=== PATIENT | male | born 1985 | race Caucasian/White ===

== ENCOUNTER 2021-11-15 14:37 | Emergency (ER) | payer OTHER, SELFPAY ==
[2021-11-15 15:09] VITALS: BP 122/78; PULSE 120; RESP 17; TEMP 37.2; O2SAT 95; BMI 32.2
--- NOTE | 2021-11-15 18:30 | ED.GENADULT ---
HPI - General Adult General Chief complaint: General Medical Stated complaint: toruble urinanting/painful Time Seen by Provider: 11/15/21 15:25 Source: patient Mode of arrival: ambulatory Limitations: no limitations History of Present Illness HPI narrative: Patient's history of urethral stricture after injury about 15 years ago had last urethral dilatation was done about 12 years ago since then patient has been having problems urinating unable to see urologist since then is getting worse for last few days feels that not able to empty his bladder completely on arrival patient's postvoid volume was 250 cc feeling uncomfortable no fever no chills no nausea or vomiting no abdominal pain patient having very hard time to even start urinating Related Data Previous Rx's Medication Instructions Recorded levofloxacin 500 mg tablet 500 mg PO DAILY 10 Days #10 tab 11/15/21 Allergies Allergy/AdvReac Type Severity Reaction Status Date / Time No Known Allergies Allergy Unverified 05/12/20 18:32 Review of Systems Review of Systems: Yes all other systems are reviewed and are negative PMFSH Past Medical History Medical History Asthma Urethral stricture Social History Social History Advance Directives: No Advance Directives Information Provided: No Physical Exam ED Vital Signs: Vital Signs - 24 hr 11/15/21 15:09 11/15/21 20:11 Temperature 99 F Pulse Rate 120 H 74 Respiratory Rate 17 15 Blood Pressure 122/78 139/78 Pulse Oximetry 95 98 BMI result Body Mass Index 32.2 Appearance: Alert. Oriented X3. No acute distress. ENT: Pharynx normal. Oral Mucosa moist Neck: Normal inspection. Neck supple. CVS: Normal heart rate and rhythm. Pulses normal. Respiratory: No respiratory distress. Equal air entry bilateral, Abdomen: Soft and nontender. : Meatus of the penis almost closed normal testicle Neuro: Oriented X 3. Procedures Catheter Insertion (Urinary) Date of insertion: 11/15/21 Time of insertion: 19:40 Reason for placing indwelling catheter: Acute urinary retention Bladder scan/ultrasound used before catheterization: Yes Estimated amount of urine (mLs): 250 Antiseptic solution prep: Povidone-Iodine Topical anesthesia used: Yes Catheter type/location: Urethral Size (Welsh): 14 Catheter balloon size (mL): 10 Catheter balloon amount: 10 Results: successfully catheterized-immediate flow Procedure performed: without complications Medical Decision Making MDM Narrative Medical decision making narrative: Patient with urethral stricture urethral dilatation was done using straight cath 12 Welsh then 14 Welsh and 16 Welsh and then 14 Welsh Miller catheter was placed Lab Data Labs: Lab Results 11/15/21 Range/Units 19:33 Urine Color ORANGE A Urine Appearance HAZY Urine pH 7.0 (5.0-8.0) Ur Specific [place] 1.020 (1.005-1.025) Urine Protein TRACE (NEG-TRACE) MG/DL Urine Glucose (UA) NEG (NEG) MG/DL Urine Ketones 5 (NEG) MG/DL Urine Blood NEG (NEG) Urine Nitrite NEG (NEG) Ur Leukocyte Esterase 1+ H (NEG) Urine RBC 0 (0) /HPF Urine WBC 15-29 H (0-4) /HPF Ur Squamous Epith Cells 3+ /LPF Urine Bacteria 2+ /LPF Urine Mucus 1+ /LPF Discharge Plan Discharge Clinical Impression: Acute urinary retention, Anterior urethral stricture, UTI (urinary tract infection) Patient Disposition: Home, Self-Care Instructions: Urinary Tract Infection in Men (ED), Miller Catheter Placement and Care (ED) Additional Instructions: Drink plenty of fluids Miller catheter care as advised Antibiotics as prescribed Follow with urologist Prescriptions: New levofloxacin 500 mg tablet 500 mg PO DAILY 10 Days Qty: 10 0RF Referrals: Mak Hoff MD [Physician] - 1 week Interventions: ED Discharge Assessment Last Done: 11/15/21 20:26 Discharge Date/Time: 11/15/21 20:27
[2021-11-15] MEDS: Lidocaine HCl 2 % Urojet 10 ML JEL.PF.APP TOPICAL ×2 (19:10→20:11)
[2021-11-15 19:39] LABS: Appearance Urine HAZY; Color Urine ORANGE; Glucose Urine UA NEG (NEG); Leukocyte Esterase Urine 1+ (NEG); Nitrite Urine NEG (NEG); UACC Culture Trigger YES; Urine Blood NEG (NEG); Urine Ketones 5 MG/DL (NEG); Urine Protein TRACE MG/DL (NEG-TRACE)
[2021-11-15 19:45] LABS: Bacteria Urine 2+ /LPF; Mucus Urine 1+ /LPF; RBC Urine 0 /HPF (0); Squamous Epithelial Cell Urine 3+ /LPF
[2021-11-15] MEDS: levoFLOXacin 500 MG TABLET PO (20:10)
[2021-11-15 20:11] VITALS: BP 139/78; PULSE 74; RESP 15; O2SAT 98
== END 2021-11-15 20:27 | disposition home or self-care (01) ==
PROVIDERS: Emergency Provider Internal Medicine
DX: N35.914 Unspecified anterior urethral stricture, male (principal); R30.0 Dysuria; R33.9 Retention of urine, unspecified; N39.0 Urinary tract infection, site not specified; Z79.899 Other long term (current) drug therapy
CPT/HCPCS: 51798; 81001; 87086; 99284

== ENCOUNTER → 2021-11-21 10:10 | Outpatient (BNVA) | payer OTHER, SELFPAY | PROVIDERS: Visit Provider Urology | DX: N35.919 Unspecified urethral stricture, male, unspecified site (principal); N32.89 Other specified disorders of bladder | CPT/HCPCS: Q3014 ==

== ENCOUNTER 2021-11-27 11:52 | Day surgery (SDC) | payer OTHER, SELFPAY ==
--- NOTE | 2021-11-24 10:19 | HO.ANESPROP2 ---
HPI - Anesthesia Eval Consult details Narrative: 36yo M for Cystoscopy Direct Visual Internal Urethrotomy Suboxone daily (10mg daily) PMFSH Active Problems Active Problems: All Active Problems (Updated 11/21/21 @ 11:28 by Mak Hoff MD) Bladder spasm (Acute) Urethral stricture (Acute) Past Medical History Medical History (Updated 11/21/21 @ 11:28 by Mak Hoff MD) Asthma Urethral stricture Social History Social History Patient Tobacco Use Status: Current someday Tobacco user Tobacco use type: Cigarette Meds Allergies Allergy/AdvReac Type Severity Reaction Status Date / Time No Known Allergies Allergy Verified 11/21/21 10:12 Home Medications Medication Instructions Recorded Confirmed Last Taken Type buprenorphine 8 mg-naloxone 2 mg 10 mg SUBLINGUAL DAILY 11/21/21 Unknown History sublingual film Exam Exam Date and Time: November 24, 2021 1019 Assessment and Plan Assessment Anesthesia Assessment: Chart Reviewed
[2021-11-27] VITALS (8 sets, daily range): BP systolic 127–150; BP diastolic 79–95; PULSE 77–90; RESP 16–20; TEMP 36.4–37; O2SAT 97–99; BMI 32.1
[2021-11-27] MEDS: Lactated Ringers 1,000 ML 100 ML IVCONT (13:09)
[2021-11-27] MEDS: ondansetron HCL 4 MG/2 ML VIAL IVPUSH (15:19)
--- NOTE | 2021-11-27 15:34 | PC.NURSE ---
PATIENT WAS SLEEPING AND WHEN HE AWOKE HE FELT NAUSEOUS. YELLOW OUTPUT. FELT BETTER AFTERWARDS PER PATIENT. MEDICATED FOR NAUSEA PER MD ANAILSA ORDER. DECREASED NAUSE. HOB 45DEGREES.
--- NOTE | 2021-11-27 16:26 | PC.NURSE ---
report leslee kay pt moved to pacu awaiting surgery aware and patient of careplan
--- NOTE | 2021-11-27 17:42 | MHC.SHP ---
Pre-Procedural Eval Section A Date of Service: 11/27/21 The patient is an INPATIENT: No Changes since office visit: No Cold of Flu in the past 2 weeks, No New Medical Problems, No Changes in Medication and No Patient answered all questions The History & Physical has been completed within 30 days and I have reviewed it.: Yes Section B Chief Complaint: urethral stricture Allergies: Allergies Allergy/AdvReac Type Severity Reaction Status Date / Time No Known Allergies Allergy Verified 11/21/21 10:12 Plan Diagnosis/Plan: Unchanged ( cystoscopy, direct visualization internal urethrotomy) I have reviewed the history and physical and performed a pertinent physical examination on my patient. No changes have occurred unless specified.
--- NOTE | 2021-11-27 17:57 | HO.ANESPROP2 ---
[facility] Active Problems Active Problems: All Active Problems (Updated 11/21/21 @ 11:28 by Mak Hoff MD) Bladder spasm (Acute) Urethral stricture (Acute) Past Medical History Medical History (Updated 11/21/21 @ 11:28 by Mak Hoff MD) Asthma Urethral stricture Social History Social History Patient Tobacco Use Status: Current someday Tobacco user Tobacco use type: Cigarette Use of substances other than those prescribed or required for medical reasons: Yes Substance Use Frequency: Occasionally Are you DNR?: No Advance Directives: No Advance Directives Information Provided: Yes Advance Directives on File: No Meds Allergies Allergy/AdvReac Type Severity Reaction Status Date / Time No Known Allergies Allergy Verified 11/21/21 10:12 Active Medications: Current Medications Albuterol Sulfate (Albuterol Sulfate (0.083%) 2.5 Mg/3 Ml Vial.Neb) 2.5 mg INHALE ONCE PRN PRN Reason: Shortness of Breath/Wheezing Lactated Ringer's (Lr) 1,000 mls @ 100 mls/hr IVCONT .Q10H SINDY Last Admin: 11/27/21 13:09 Dose: 100 mls/hr Documented by: Home Medications Medication Instructions Recorded Confirmed Last Taken Type buprenorphine 8 mg-naloxone 2 mg 10 mg SUBLINGUAL DAILY 11/21/21 Unknown History sublingual film Exam Exam Date and Time: November 27, 2021 1757 Height,Weight and Vital Signs: Height 6 ft 2 in Weight 113.398 kg Last Vital Signs Temp 97.5 F 11/27/21 13:02 Pulse 77 11/27/21 13:02 Resp 16 11/27/21 13:02 BP 127/79 11/27/21 13:02 Pulse Ox 97 11/27/21 13:02 Airway Mallampati Class: II TM Dist: >3cm Neck ROM: Full Heart: RRR Lungs: CTA Assessment and Plan Assessment Anesthesia Assessment: Anesthesia Plan Discussed and Chart Reviewed Final Anesthetic Review NPO: Yes ASA Class: II Final Preanesthetic Review: No Changes in Pt Med Stat, Meds/Allgs Chart Reviewed, Consent Obtained/Reviewed and Anes Risks/Benef Reviewed Patient Risk: Intermediate Procedure Risk: Low Anesthetic Plan Anesthetic Plan: GA Disposition: Standard PACU
--- NOTE | 2021-11-27 18:39 | P.OP_ITS ---
Operative Note Operative Note Date of Service: 11/27/21 Narrative: PreOperative Diagnosis: Distal urethral stricture Post Operative Diagnosis: distal urethral stricture Procedure: catheter removal, cystoscopy, urethral dilatation, catheter placement Surgeon: Dr Mak Hoff Anesthesia: general Indications for procedure: prior ureteric stricture with procedure 18 years ago. Noticed weakness of stream and passed recent history. Presented to emergency room with retention and small bore catheter placed. Here for diagnostic cystoscopy and appropriate management. Procedure: After informed consent was verified the patient was brought to the operating room and placed in a supine position. Anesthesia was administered per protocol. patient was placed in modified dorsal lithotomy position and prepped and draped in sterile fashion. Safety pause time-out performed. Antibiotics being given. Indwelling Miller catheter been removed prior to positioning. Cystoscopy performed. Unable to advance more than 2 cm into urethra. Appeared to have distal urethral narrowing and a question of fossa navicularis scarring. Sensor guidewire placed into the bladder. Urethral dilatation performed to 22 [place]. Cystoscopy performed cystoscope able to be advanced into the bladder. Scarring could be seen on distal portion of urethra for approximately 1-[address] inches[address] Decision made to place Arden tip catheter. Twenty Green[place]ic Arden tip catheter placed over the wire into the bladder. Guidewire removed. 10 cc placed in balloon. Catheter capped and can remain for 5-7 days Tolerated the procedure well was extubated in operating room transferred in stable condition to recovery area. Pathology: None Drains: Miller catheter is above
[2021-11-27] MEDS: HYDROmorphone HCl 0.5 MG/0.5 ML SYRINGE IVPUSH (19:00)
== END 2021-11-27 19:57 | disposition home or self-care (01) ==
PROVIDERS: Visit Provider Urology
PROC: 0TND8ZZ Release Urethra, Via Natural or Artificial Opening Endoscopic (ICD-10-PCS; CPT 52276; principal; 2021-11-27 13:50)
DX: N35.919 Unspecified urethral stricture, male, unspecified site (principal); N32.89 Other specified disorders of bladder; J45.909 Unspecified asthma, uncomplicated; F17.210 Nicotine dependence, cigarettes, uncomplicated; Z79.899 Other long term (current) drug therapy
CPT/HCPCS: 52281; C1769; J0131; J1170; J1956; J2405

== ENCOUNTER → 2021-12-05 09:24 | Outpatient (BNVA) | payer OTHER, SELFPAY | PROVIDERS: PCP Internal Medicine; Visit Provider Urology | DX: Z46.6 Encounter for fitting and adjustment of urinary device (principal); N35.919 Unspecified urethral stricture, male, unspecified site | CPT/HCPCS: 99211 ==

== ENCOUNTER → 2021-12-12 10:27 | Outpatient (BNVA) | payer OTHER, SELFPAY | PROVIDERS: PCP Internal Medicine; Visit Provider Urology | DX: Z13.89 Encounter for screening for other disorder (principal) ==

== ENCOUNTER 2023-10-29 14:59 | Outpatient (AMB) | payer BC, SELFPAY ==
[2023-10-29 15:03] VITALS: PULSE 66; O2SAT 99; BMI 32.1
--- NOTE | 2023-10-29 15:03 | MHC.OFFVIS ---
Intake Vital Signs 10/29/23 15:03 Height 6 ft 2 in Weight 250 lb BMI 32.1 Pulse 66 Pulse Source Pulse Oximeter Pulse Oximetry (%) 99 Oxygen Delivery Method Room Air Intake Visit Reasons: Cough Online Education Manager Required: No Allergies No Known Allergies Allergy (Verified 10/29/23 15:04) HPI HPI Comments History of Present Illness Details The patient is here for pulmonary evaluation. The patient is a 38 year general known history of asthma. Patient states that he developed asthma about 4-5 years ago. The patient has struggled with the chest tightness and wheezing. Had been using his rescue inhaler on a daily basis multiple times a day. Until he started Breo. Breo 200 mcg dose has been very effective for him. He does that daily. He has not had to use his rescue inhaler. As far as his triggers he does have a pet bird. He still smokes some usually recreational marijuana. He is trying to get down however. Prior to that he was involved in other recreational drugs. 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 The patient does have allergies although he has not had proper allergy testing. Clinically he feels well this time. Although, on examination he does have some wheezing and rhonchi. Was able to cough some secretions in his rhonchi did improve which is reassuring. The rhonchi seemed to be more focused on the right side than the left. He denies any significant reflux disease heartburn. Based on his ongoing symptoms will go ahead and optimize his treatment to Trelegy instead this will provide him more bronchodilator effect. In addition to that will have him undergo pulmonary function studies. He did have a chest x-ray in the past at [facility] that we over to review without any acute disease. Depending on his response to the Trelegy will consider doing additional testing. I did notice that his legs were also swollen. Based on that further questions included the fact that he is having daytime drowsiness and does have episodes of snoring and also apneic episodes. His [place] score is elevated 10/24. Therefore, the patient definitely needs to have a sleep study at this time. Will request a home sleep study for him. [facility] Medical History (Updated 10/30/23 @ 08:49 by Miguel Sierra MD) Chronic allergic rhinitis ELODIA (obstructive sleep apnea) Urethral stricture Asthma Social History Patient Tobacco Use Status: Current someday Tobacco user Tobacco use type: Cigarette Review of Systems Const Reports daytime sleepiness, Reports snoring and Reports stops breathing during sleep ENT Reports post nasal drip Card Denies chest pain Resp Reports cough, Reports snoring and Reports wheezing GI Reports no additional complaints Musc Reports no additional complaints Skin/Breast Denies rash Neuro Reports no additional complaints Aller/Immun Reports wheezing Physical Exam Vital Signs: Last Vital Signs Pulse 66 10/29/23 15:03 Pulse Ox 99 10/29/23 15:03 Oxygen Delivery Method Room Air 10/29/23 15:03 BMI result Body Mass Index 32.1 Const General: comfortable HEENT Head: Yes normocephalic Neck Neck: Yes supple Chest Chest palpation & inspection: normal inspection of the chest Resp Effort & Inspection: normal respiratory effort and prolonged expiratory phase Auscultation: rhonchi and wheezes Cardio Heart sounds: S1 normal heart sound present and S2 normal heart sound present GI Palpation (GI): Soft to palpation Skin General skin exam: no rashes or lesions noted Extrem General: Yes no clubbing, cyanosis or edema Assessment & Plan Assessment & Plan (1) Asthma: Code(s): J45.909 - Unspecified asthma, uncomplicated Qualifiers: Asthma severity: moderate Asthma persistence: persistent Asthma complication type: uncomplicated Qualified Code(s): J45.40 - Moderate persistent asthma, uncomplicated (2) ELODIA (obstructive sleep apnea): Code(s): G47.33 - Obstructive sleep apnea (adult) (pediatric) (3) Chronic allergic rhinitis: Code(s): J30.9 - Allergic rhinitis, unspecified Plan Stop Breo Start Trelegy 200 RADHA as neeeded Home PSG PFTs Consider bloodwork / allergy testing F/U 3 months Orders: Orders PFT pulmonary function test 10/29/23 G47.33 - Obstructive sleep apnea (adult) (pediatric), J45.909 - Unspecified asthma, uncomplicated RT home sleep study 10/29/23 Medications: New bfwdxvbghwo-gbblaeqmr-ubbwiurc 200-62.5-25 mcg (Trelegy Ellipta) 1 inh inhalation DAILY 30 days 60 ea 12RF Coding Level of Care Code New Pt Level 4 (12863) Diagnoses Moderate persistent asthma without complication J45.40 Asthma severity: moderate Asthma persistence: persistent Asthma complication type: uncomplicated ELODIA (obstructive sleep apnea) G47.33 Chronic allergic rhinitis J30.9 Time Spent (min) 37
== END 2023-10-29 15:24 | disposition home or self-care (01) ==
PROVIDERS: PCP Internal Medicine; Visit Provider Hospitalist
DX: J45.40 Moderate persistent asthma, uncomplicated (principal); G47.33 Obstructive sleep apnea (adult) (pediatric); J30.9 Allergic rhinitis, unspecified
CPT/HCPCS: 99204

== ENCOUNTER → 2023-10-29 14:59 | Outpatient (BNVA) | payer BC, SELFPAY | PROVIDERS: PCP Internal Medicine; Visit Provider Hospitalist ==

== ENCOUNTER → 2023-12-10 09:01 | Outpatient (REF) | payer BC, SELFPAY | LOC: HO.SL 09:01 | PROVIDERS: PCP Internal Medicine; Visit Provider Hospitalist | DX: G47.33 Obstructive sleep apnea (adult) (pediatric) (principal) | CPT/HCPCS: 95806 ==

== ENCOUNTER → 2023-12-10 09:13 | Outpatient (BNV) | payer BC, SELFPAY | PROVIDERS: PCP Internal Medicine; Visit Provider Internal Medicine | DX: R06.83 Snoring (principal) | CPT/HCPCS: 95806 ==

== ENCOUNTER 2025-03-05 15:40 | Outpatient (AMB) | payer BC, SELFPAY ==
--- NOTE | 2025-03-05 15:41 | A.OFFVIS_ITS ---
Vital Signs 03/05/25 15:42 Height 6 ft 2 in Weight 234 lb 12.677 oz BMI 30.1 BP 120/60 Blood Pressure Location Lt brachial Position Sitting Pulse 77 Pulse Source Pulse Oximeter Pulse Oximetry (%) 96 Oxygen Delivery Method Room Air Intake Visit Reasons: cough Database Security Administrator Required: No Accompanied by: Self / Same As Patient Allergies No Known Allergies Allergy (Verified 03/05/25 15:45) HPI Comments Details: he patient is a 39 year general known history of asthma. Patient states that he developed asthma about 4-5 years ago. The patient has struggled with the chest tightness and wheezing. Had been using his rescue inhaler on a daily basis multiple times a day. Until he started Breo. Breo 200 mcg dose has been very effective for him. He does that daily. He has not had to use his rescue inhaler. As far as his triggers he does have a pet bird. He still smokes some usually recreational marijuana. He is trying to get down however. Prior to that he was involved in other recreational drugs. 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 The patient does have allergies although he has not had proper allergy testing. Clinically he feels well this time. Although, on examination he does have some wheezing and rhonchi. Was able to cough some secretions in his rhonchi did improve which is reassuring. The rhonchi seemed to be more focused on the right side than the left. He denies any significant reflux disease heartburn. Based on his ongoing symptoms will go ahead and optimize his treatment to Trelegy instead this will provide him more bronchodilator effect. In addition to that will have him undergo pulmonary function studies. He did have a chest x-ray in the past at [facility] that we over to review without any acute disease. Depending on his response to the Trelegy will consider doing additional testing. I did notice that his legs were also swollen. Based on that further questions included the fact that he is having daytime drowsiness and does have episodes of snoring and also apneic episodes. His [place] score is elevated 10/24. Therefore, the patient definitely needs to have a sleep study at this time. Will request a home sleep study for him. 03/05/2025 the patient is here for pulmonary follow-up visit. Overall he is doing a lot better from an asthma standpoint. He does have a cough intermittently and also has intermittent wheezing mild in severity. He did get the Trelegy in the Trelegy this has been very affecting beneficial but he does not have to use it as often. He typically just uses his rescue inhaler. He will definitely benefit from air supra. Will go ahead and switch him from Trelegy to air supra this time and he can use it as needed twice a day. He knows to rinse and gargle after using the inhaler to avoid thrush or any irritation. The patient did have a sleep study back last year 2023 which we personally reviewed. The patient did not have any significant sleep apnea. Although he did better sleeping in his left side down. Therefore, he is going to practice positional therapy at this time. No imaging studies to review will follow-up in a year's time if he has any issues prior to this he will call for an earlier assessment. [facility] Medical History (Updated 10/30/23 @ 08:49 by Miguel Sierra MD) Chronic allergic rhinitis ELODIA (obstructive sleep apnea) Urethral stricture Asthma Social History Patient Tobacco Use Status: Current someday Tobacco user Tobacco use type: Cigarette Review of Systems Const Reports daytime sleepiness, Denies snoring and Reports stops breathing during sleep ENT Reports post nasal drip Card Denies chest pain Resp Reports cough, Denies snoring and Denies wheezing GI Reports no additional complaints Musc Reports no additional complaints Skin/Breast Denies rash Neuro Reports no additional complaints Aller/Immun Denies wheezing Physical Exam Vital Signs: Last Vital Signs Pulse 77 03/05/25 15:42 BP 120/60 03/05/25 15:42 Pulse Ox 96 03/05/25 15:42 Oxygen Delivery Method Room Air 03/05/25 15:42 BMI result Body Mass Index 30.1 Const General: comfortable HEENT Head: Yes normocephalic Neck Neck: Yes supple Chest Chest palpation & inspection: normal inspection of the chest Resp Effort & Inspection: normal respiratory effort Auscultation: clear to auscultation bilaterally, no rhonchi and no wheezes Cardio Heart sounds: S1 normal heart sound present and S2 normal heart sound present GI Palpation (GI): Soft to palpation Skin General skin exam: no rashes or lesions noted Extrem General: Yes no clubbing, cyanosis or edema Assessment & Plan Assessment & Plan (1) Asthma: Code(s): J45.909 - Unspecified asthma, uncomplicated Category: Medical Qualifiers: Asthma complication type: uncomplicated Asthma persistence: persistent Asthma severity: moderate Qualified Code(s): J45.40 - Moderate persistent asthma, uncomplicated (2) ELODIA (obstructive sleep apnea): Code(s): G47.33 - Obstructive sleep apnea (adult) (pediatric) Category: Medical (3) Chronic allergic rhinitis: Code(s): J30.9 - Allergic rhinitis, unspecified Category: Medical Plan stop Trelegy 200 RADHA as neeeded start Airsupra as needed. But, may want to go back on Trelegy if symptoms worsen, Consider bloodwork / allergy testing F/U 12 months Medications: New albuterol-budesonide 90-80 mcg/actuation (Airsupra) 2 inhalations inhalation BID PRN 10.7 grams 11RF shortness of breath Discontinued yfwuhlgoecs-nqtteysoj-mtzlosyc 200-62.5-25 mcg (Trelegy Ellipta) Discontinued Reason: Doctor's Order 1 inh inhalation DAILY 30 days 60 ea 12RF Coding Level of Care Code Est Pt Level 4 (18139) Diagnoses Moderate persistent asthma without complication J45.40 Asthma complication type: uncomplicated Asthma persistence: persistent Asthma severity: moderate ELODIA (obstructive sleep apnea) G47.33 Chronic allergic rhinitis J30.9 Time Spent (min) 16
[2025-03-05 15:42] VITALS: BP 120/60; PULSE 77; O2SAT 96; BMI 30.1
== END 2025-03-05 16:11 | disposition home or self-care (01) ==
LOC: HO.HPS 15:40
PROVIDERS: PCP Internal Medicine; Visit Provider Hospitalist
DX: J45.40 Moderate persistent asthma, uncomplicated (principal); G47.33 Obstructive sleep apnea (adult) (pediatric); J30.9 Allergic rhinitis, unspecified
CPT/HCPCS: 99214

== ENCOUNTER 2025-03-09 15:27 | Outpatient (AMB) | payer BC, SELFPAY ==
--- NOTE | 2025-03-09 15:33 | A.OFFVIS_ITS ---
Intake Visit Reasons: urethral stricture/lichen sclerosis of the penis Intake Note: New Patient is present for urethral stricture Urology Rx: none Blood Thinners:none [employer] Psychiatrist Required: No Accompanied by: Self / Same As Patient Allergies No Known Allergies Allergy (Verified 03/09/25 15:34) HPI Comments Details: Michael is a pleasant male. He is seen for the following urologic condition - urethral stricture Last seen October 2021 Previously recommended daily use of dilator and referral to [facility] Prior referral to Dr. Faustin at [facility] for graft - distal urethral reconstruction Was informed that reconstruction would be extensive Given glucocorticoids cream - has caused thinning on glandular tissue Recommend trial topical testosterone Prescription provided Urethral stricture Prior injury aged 20 Follow catheter placed emergency room 11/14 DVIU performed for distal urethral stricture Had catheter for 7 days [facility] Medical History (Updated 03/09/25 @ 15:59 by Mak Hoff MD) Chronic allergic rhinitis ELODIA (obstructive sleep apnea) Urethral stricture Asthma Social History Patient Tobacco Use Status: Current someday Tobacco user Tobacco use type: Cigarette Review of Systems Const Denies chills and Denies fever(s) Card Reports no additional complaints and Denies syncope Resp Denies cough GI Denies abdominal pain and Denies heartburn Reports as per HPI and Denies change in libido Neuro Denies syncope Psych Denies change in libido Endo Denies change in libido Physical Exam Const General: cooperative, healthy appearing, comfortable and no acute distress Orientation/consciousness: patient oriented x3 HEENT Face and sinus: Yes normal facial exam Mouth: moist mucous membranes Neck Neck: Yes normal visual inspection, Yes full ROM and Yes trachea midline Chest Chest palpation & inspection: normal inspection of the chest Resp Effort & Inspection: normal respiratory effort, able to speak in complete sentences and no respiratory distress GI Inspection: Yes normal to inspection Back/Spine/Pelvis Cervical Spine: normal cervical lordosis Thoracic/Lumbar Spine: thoracic and lumbar spine normal to inspection Skin General skin exam: no rashes or lesions noted Neuro General: patient oriented x3, gait normal, tone normal and moves all extremities Extrem General: Yes normal to inspection and Yes capillary refill normal Results AMB Urinalysis, Automated UA Leukoctes 0 Sterling/uL Last Edit by Keily Velazco MA on 03/09/25 16:12 UA Nitrite Negative Last Edit by Keily Velazco, NITZA on 03/09/25 16:12 UA Urobilinogen 3.5 mg/dL Last Edit by Keily Velazco, [place] on 03/09/25 16:12 UA Protein 0.3 mg/dL Last Edit by Keily Velazco, [place] on 03/09/25 16:12 UA pH 5.5 Last Edit by Keily Velazco, [place] on 03/09/25 16:12 UA Blood 0 Klaus/uL Last Edit by Keily Velazco, [place] on 03/09/25 16:12 UA Specific Butler 1.030 Last Edit by Keily Velazco, [place] on 03/09/25 16:12 UA Ketone Negative Last Edit by Keily Velazco, [place] on 03/09/25 16:12 UA Bilirubin 0 mg/dL Last Edit by Keily Velazco, [place] on 03/09/25 16:12 UA Glucose 0 mg/dL Last Edit by Keily Velazco, [place] on 03/09/25 16:12 Assessment & Plan Assessment & Plan (1) 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 While every effort has been made to ensure accuracy install and repair technician errors may have been included. Imaging studies, laboratory and physical exam results were discussed and reviewed in detail. No major barriers to patient understanding were identified. An opportunity to ask questions regarding the treatment plan was provided. All questions were answered. The patient expressed understanding and agreement with the above treatment plan. The patient is aware they should contact our office by phone for worsening of their current condition or the appearance of new urologic symptoms. Compliance is encouraged with any medications and followup testing that is ordered. It is a privilege to participate in the urologic care of your patient. If you have any questions or concerns regarding treatment for the above conditions, or other urologic issues, please do not hesitate to contact me. The office telephone contact is [phone]. 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
--- OUTSIDE RECORDS SUMMARY | 2025-03-09 16:30 | XMS_ITS | Clinical Summary ---
Author Organization [facility] Address [address] [place] [address] Care Team Providers Care Farm Mechanic Apprentice Name Role Phone Unavailable Primary Care Provider Unavailabl e Allergies No known active allergies Medications * This document contains information received from the source organization and may not represent a complete record from that organization. No known medications Active Problems Problem Noted Date Diagnosed Date Rotator cuff (capsule) sprain 12/23/2009 Social History Tobacco Use Types Packs/Day Years Used Date Smoking Tobacco: Never Assessed Sex and Gender Information Value Date Recorded Sex Assigned at Not on file Legal Sex Male 7:52 PM EDT Gender Identity Not on file Sexual Orientation Not on file Last Filed Vital Signs Vital Sign Reading Time Taken Comments Blood Pressure 114/74 12/29/2009 10:12 AM EDT Pulse 70 12/29/2009 10:12 AM EDT Temperature - - Respiratory Rate 20 10/06/2007 12:54 PM EST Oxygen Saturation 98% 10/06/2007 12:54 PM EST Inhaled Oxygen Concentration - - Weight 106 kg (234 lb) 10/06/2007 12:54 PM EST Height 188 cm (6' 2 ) 10/06/2007 12:54 PM EST Body Mass Index 30.04 10/06/2007 12:54 PM EST Plan of Treatment Health Maintenance Due Date Last Done Comments Hepatitis C Screening 1983 DTaP/Tdap/Td (1 - Tdap) 2001 Hep B (1 of 3 - 19+ 3-dose series) 2002 COVID-19 Vaccine ( - 2023-2 5 season) 2024 Influenza (#1) 2025 Zoster (Shingrix) (1 of 2) 2033 HPV Vaccine Aged Out No longer eligi ble based on patient's age to complete this topic Hep A Aged Out No longer eligi ble based on patient's age to complete this topic Hib Aged Out No longer eligi ble based on patient's age to complete this topic Meningococcal ACWY Aged Out No longer eligible based on patient's age to complete this topic Pneumococcal Aged Out No longer eligi ble based on patient's age to complete this topic Insurance WORKERS COMPENSATION * Guarantor: [employer] Account Type Relation to Patient Date of Phone Billing Address [facility] ATTN: A/P DEPT 2ND FLR [address] [place] [address]
== END 2025-03-09 16:04 | disposition home or self-care (01) ==
LOC: HO.HUSH 15:27
PROVIDERS: PCP Internal Medicine; Visit Provider Urology
DX: N48.0 Leukoplakia of penis (principal); Z13.9 Encounter for screening, unspecified
CPT/HCPCS: 99204

== ENCOUNTER → 2025-03-09 15:27 | Outpatient (BNVA) | payer BC, SELFPAY | PROVIDERS: PCP Internal Medicine; Visit Provider Urology | DX: N48.0 Leukoplakia of penis (principal) | CPT/HCPCS: 81003 ==

== ENCOUNTER 2025-03-17 15:10 | Outpatient (AMB) | payer BC, SELFPAY ==
--- NOTE | 2025-03-17 15:15 | A.OFFVIS_ITS ---
Vital Signs 03/17/25 15:21 Height 6 ft 2 in Weight 235 lb BMI 30.2 BP 135/77 Blood Pressure Location Rt brachial Position Sitting Pulse 110 H Intake Visit Reasons: soft tissue lesion (general surgery) Intake Note: Patient referred by pcp Dr. Araya for evaluation and treatment of lipoma on Lt abdomen. Present for 4yrs. Patient c/o: enlarging. Denies pain. Corrosion Control Specialist Required: No Accompanied by: Self / Same As Patient Allergies No Known Allergies Allergy (Verified 03/09/25 15:34) Medication List - Last Reconciled 03/17/25 by Johnnie Landry MD albuterol sulfate 90 mcg/actuation inhalation albuterol-budesonide 90-80 mcg/actuation (Airsupra) 2 inhalations inhalation BID PRN dextroamphetamine-amphetamine 20 mg (Adderall) 20 mg PO DAILY lamotrigine (Lamictal) 100 mg PO DAILY mometasone 0.1% topical testosterone 50 mg transdermal DAILY 60 days HPI HPI soft tissue lesion (general surgery): Details: 39-year-old male referred for a lump on the abdominal wall on the left side. He says he has had this probably 5 years. However, this has been increasing in size. He says that this has been getting more uncomfortable and ?annoying?. Therefore, he wants this removed. [facility] Medical History (Updated 03/17/25 @ 15:27 by Johnnie Landry MD) Lipoma of abdominal wall Torn meniscus ACL tear Chronic allergic rhinitis ELODIA (obstructive sleep apnea) Urethral stricture Asthma Social History Patient Tobacco Use Status: Current someday Tobacco user Tobacco use type: Cigarette Review of Systems Const Denies chills and Denies fever(s) Card Denies chest pain, Denies dyspnea and Denies dyspnea on exertion Resp Denies cough, Denies dyspnea and Denies dyspnea on exertion GI Denies hematochezia and Denies change in bowel habits Denies hematuria and Denies difficulty urinating Musc Denies back pain and Denies limited range of motion Neuro Denies focal weakness and Denies convulsions Psych Denies depression and Denies mood swings Physical Exam Vital Signs: Last Vital Signs Pulse 110 H 03/17/25 15:21 BP 135/77 03/17/25 15:21 BMI result Body Mass Index 30.2 Const General: comfortable and no acute distress Orientation/consciousness: patient oriented x3 Neck Neck: Yes no lymphadenopathy Resp Auscultation: clear to auscultation bilaterally Cardio Rhythm: regular rhythm GI Other: On the left lower quadrant towards the hip area is note of a soft lipomatous mass, well-defined, mobile, about 3.5 cm Palpation (GI): Soft to palpation, nontender and no guarding Neuro General: patient oriented x3 Assessment & Plan Assessment & Plan (1) Lipoma of abdominal wall: Code(s): D17.1 - Benign lipomatous neoplasm of skin and subcutaneous tissue of trunk Category: Medical Plan: He has what appears to be a lipomatous mass on the abdominal wall. He wants to proceed with excision. I explained the technique of excision under local anesthesia. I reviewed the risks including but not limited to bleeding, infections, as well as the benefits and alternatives. I reviewed with him what to expect postoperatively. He says he understands and wants to proceed. This has been done here in the office on his next visit. Coding Level of Care Code New Pt Level 3 (71246) Diagnoses Lipoma of abdominal wall D17.1
[2025-03-17 15:21] VITALS: BP 135/77; PULSE 110; BMI 30.2
--- OUTSIDE RECORDS SUMMARY | 2025-03-17 15:39 | XMS_ITS | Clinical Summary ---
Author Organization [facility] Address [address] [place] [address] Care Team Providers Care Municipal Services Manager Name Role Phone Unavailable Primary Care Provider [...] this topic Insurance WORKERS COMPENSATION * Guarantor: [employer] Account Type Relation to Patient Date of Phone Billing Address [facility] ATTN: A/P DEPT 2ND FLR [address] [place] [address]
== END 2025-03-17 15:30 | disposition home or self-care (01) ==
LOC: HO.HGS 15:11
PROVIDERS: PCP Internal Medicine; Visit Provider Surgery
DX: D17.1 Benign lipomatous neoplasm of skin and subcutaneous tissue of trunk (principal)
CPT/HCPCS: 99203

== ENCOUNTER 2025-04-22 10:45 | Outpatient (REF) | payer BC, SELFPAY | END 2025-04-22 10:46 | disposition home or self-care (01) | LOC: HO.LNP 10:45 | PROVIDERS: PCP Internal Medicine; Visit Provider Surgery | DX: D17.1 Benign lipomatous neoplasm of skin and subcutaneous tissue of trunk (principal) | CPT/HCPCS: 11406; 88304 ==

== ENCOUNTER 2025-04-22 10:45 | Outpatient (AMB) | payer BC, SELFPAY ==
--- NOTE | 2025-04-22 10:55 | MHC.OFFVIS ---
Vital Signs 04/22/25 11:01 Height 6 ft 2 in Weight 236 lb BMI 30.3 BP 126/72 Blood Pressure Location Rt brachial Position Sitting Pulse 72 Intake Visit Reasons: excision soft tissue lesion (general surgery) Intake Note: Patient here for excision of lipoma on abdomen. Radiologist Diagnostic Required: No Accompanied by: Self / Same As Patient Allergies No Known Allergies Allergy (Verified 04/22/25 11:01) HPI HPI excision soft tissue lesion (general surgery): Details: He is here for excision of a lipoma from the left hip area towards the abdominal wall. [facility] Medical History (Updated 03/17/25 @ 15:27 by Johnnie Landry MD) Lipoma of abdominal wall Torn meniscus ACL tear Chronic allergic rhinitis ELODIA (obstructive sleep apnea) Urethral stricture Asthma Social History Patient Tobacco Use Status: Current someday Tobacco user Tobacco use type: Cigarette Physical Exam Vital Signs: Last Vital Signs Pulse 72 04/22/25 11:01 BP 126/72 04/22/25 11:01 BMI result Body Mass Index 30.3 Office Procedures Excision Details: He was in right lateral decubitus position. The area of the lipoma on the left hip anteriorly towards the left lower quadrant was prepped and draped. Lidocaine 1% was used for local anesthesia. I made an incision in the skin overlying the lipoma with a blade 15. This carried down through the full-thickness of the skin and part of the subcutaneous layer until was able to visualize the lipoma. I sharply dissected the lipoma off the rest of the subcutaneous layer using Metzenbaum scissors. I continued to dissect posteriorly until was able to completely delivered this. This was a large lipoma, measuring 7 by 4 cm. I closed the incision with full-thickness nylon 3-0 simple interrupted sutures. Dressings were applied. The procedure was completed. He tolerated the procedure well. There were no immediate complications. 16506-juosa/arms/legs >4cm Procedure code (CPT) selection complete Assessment & Plan Assessment & Plan (1) Lipoma of abdominal wall: Code(s): D17.1 - Benign lipomatous neoplasm of skin and subcutaneous tissue of trunk Category: Medical Plan: Excision was done here in the office under local anesthesia. He tolerated the procedure well. He was given wound care instructions. He we will be seen in the office for a postop visit and removal of sutures. Coding Level of Care Code Procedure Only Diagnoses Lipoma of abdominal wall D17.1 CPT Codes Trunk/Arms/Legs - CPT: 98323-sjeoq/arms/legs >4cm ([id number])
[2025-04-22 11:01] VITALS: BP 126/72; PULSE 72; BMI 30.3
--- OUTSIDE RECORDS SUMMARY | 2025-04-22 12:11 | XMS_ITS | Clinical Summary ---
Author Organization [facility] Address [address] [place] [address] Care Team Providers Care Staff Research Associate Name Role Phone Unavailable Primary Care Provider [...] (Shingrix) (1 of 2) 2033 HPV Vaccine (No Doses Required) Completed Hep A Aged Out No longer eligi [...] this topic Insurance WORKERS COMPENSATION * Guarantor: [employer] Account Type Relation to Patient Date of Phone Billing Address [facility] ATTN: A/P DEPT [address] [place] [address] [address] [place] [address]
== END 2025-04-22 11:25 | disposition home or self-care (01) ==
LOC: HO.HGS 10:45
PROVIDERS: PCP Internal Medicine; Visit Provider Surgery
DX: D17.1 Benign lipomatous neoplasm of skin and subcutaneous tissue of trunk (principal)
CPT/HCPCS: 11406

== ENCOUNTER 2025-05-06 14:55 | Outpatient (AMB) | payer BC, SELFPAY ==
--- NOTE | 2025-05-06 14:57 | A.OFFVIS_ITS ---
Vital Signs 05/06/25 15:03 Height 6 ft 2 in Weight 240 lb BMI 30.8 BP 132/62 Blood Pressure Location Rt brachial Position Sitting Pulse 68 Intake Visit Reasons: s/p excision soft tissue lesion Intake Note: Patient here s/p excision on Left lower abdomen. Patient c/o: no concerns. Reports incision healing well. WLE: 04-22-2025 Premium Representative Required: No Accompanied by: Self / Same As Patient Allergies No Known Allergies Allergy (Verified 05/06/25 15:02) HPI HPI s/p excision soft tissue lesion: Details: He underwent excision of a lipoma from his left flank on 04/22/2025. He tolerated the procedure well. He is here for removal sutures. He denies significant complaints. [facility] Medical History Lipoma of abdominal wall Torn meniscus ACL tear Chronic allergic rhinitis ELODIA (obstructive sleep apnea) Urethral stricture Asthma Social History Patient Tobacco Use Status: Current someday Tobacco user Tobacco use type: Cigarette Review of Systems Const Denies chills and Denies fever(s) Physical Exam Vital Signs: Last Vital Signs Pulse 68 05/06/25 15:03 BP 132/62 05/06/25 15:03 BMI result Body Mass Index 30.8 Const General: comfortable and no acute distress GI Other: Excision site on the left flank in the hip is well healed, not infected, sutures in place Assessment & Plan Assessment & Plan (1) Lipoma of abdominal wall: Code(s): D17.1 - Benign lipomatous neoplasm of skin and subcutaneous tissue of trunk Category: Medical Plan: Status post excision. I removed his sutures. The incision is healing well. I applied Steri-Strips. His path report shows a lipoma. He can follow up on a p.r.n. basis. Coding Level of Care Code Global (86461) Diagnoses Lipoma of abdominal wall D17.1
[2025-05-06 15:03] VITALS: BP 132/62; PULSE 68; BMI 30.8
--- OUTSIDE RECORDS SUMMARY | 2025-05-06 18:23 | XMS_ITS | Clinical Summary ---
Author Organization [facility] Address [address] [place] [address] Care Team Providers Care Drum Reel Cutter Name Role Phone Unavailable Primary Care Provider [...] COVID-19 Vaccine ( - 2023-2 5 season) 2025 Influenza (#1) 2025 Zoster (Shingrix) (1 of [...] this topic Insurance WORKERS COMPENSATION * Guarantor: [employer] Account Type Relation to Patient Date of Phone Billing Address [facility] ATTN: A/P DEPT [address] [place] [address] [address] [place] [address]
== END 2025-05-06 15:06 | disposition home or self-care (01) ==
LOC: HO.HGS 14:55
PROVIDERS: PCP Internal Medicine; Visit Provider Surgery
DX: D17.1 Benign lipomatous neoplasm of skin and subcutaneous tissue of trunk (principal)
CPT/HCPCS: 99024

== ENCOUNTER 2025-07-01 12:41 | Outpatient (AMB) | payer BC, SELFPAY ==
--- NOTE | 2025-07-01 12:43 | A.OFFVIS_ITS ---
Intake Visit Reasons: Penile biopsy Intake Note: New Patient is present for Penile Bx Urology Rx: Topical Testosterone Blood Thinners:none Cigarette Paper Tester Required: No Accompanied by: Self / Same As Patient Allergies No Known Allergies Allergy (Verified 07/01/25 12:44) HPI Comments Details: Michael is a pleasant male. He is seen for the following urologic condition - urethral stricture - lichen sclerosus and atrophicus of penis gland Has been receiving high potency steroids through dermatology Requesting penile biopsy for confirmation Penile biopsy performed today. Punch biopsy through full-thickness of glans surface. Interrupted suture for control. Lidocaine with epinephrine for anesthesia. Two week follow-up Previously recommended daily use of dilator and referral to [facility] Prior referral to Dr. Faustin at [facility] for graft - distal urethral reconstruction Was informed that reconstruction would be extensive Given glucocorticoids cream - has caused thinning on glandular tissue Urethral stricture Prior injury aged 20 Follow catheter placed emergency room 11/14 DVIU performed for distal urethral stricture Had catheter for 7 days COUNTS INCLUDE 234 BEDS AT THE [facility] Medical History Lipoma of abdominal wall Torn meniscus ACL tear Chronic allergic rhinitis ELODIA (obstructive sleep apnea) Urethral stricture Asthma Social History Patient Tobacco Use Status: Current someday Tobacco user Tobacco use type: Cigarette Review of Systems Const Denies chills and Denies fever(s) Card Reports no additional complaints and Denies syncope Resp Denies cough GI Denies abdominal pain and Denies heartburn Reports as per HPI and Denies change in libido Neuro Denies syncope Psych Denies change in libido Endo Denies change in libido Physical Exam Const General: cooperative, healthy appearing, comfortable and no acute distress Orientation/consciousness: patient oriented x3 HEENT Face and sinus: Yes normal facial exam Mouth: moist mucous membranes Neck Neck: Yes normal visual inspection, Yes full ROM and Yes trachea midline Chest Chest palpation & inspection: normal inspection of the chest Resp Effort & Inspection: normal respiratory effort, able to speak in complete sentences and no respiratory distress GI Inspection: Yes normal to inspection Back/Spine/Pelvis Cervical Spine: normal cervical lordosis Thoracic/Lumbar Spine: thoracic and lumbar spine normal to inspection Skin General skin exam: no rashes or lesions noted Neuro General: patient oriented x3, gait normal, tone normal and moves all extremities Extrem General: Yes normal to inspection and Yes capillary refill normal Office Procedures Excision Details: 10ml Lidocaine 2% injected by Dr. 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 While every effort has been made to ensure accuracy trawl net maker errors may have been included. Imaging studies, laboratory and physical exam results were discussed and reviewed in detail. No major barriers to patient understanding were identified. An opportunity to ask questions regarding the treatment plan was provided. All questions were answered. The patient expressed understanding and agreement with the above treatment plan. The patient is aware they should contact our office by phone for worsening of their current condition or the appearance of new urologic symptoms. Compliance is encouraged with any medications and followup testing that is ordered. It is a privilege to participate in the urologic care of your patient. If you have any questions or concerns regarding treatment for the above conditions, or other urologic issues, please do not hesitate to contact me. The office telephone contact is [phone]. 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
--- OUTSIDE RECORDS SUMMARY | 2025-07-01 15:31 | XMS_ITS | Clinical Summary ---
Author Organization [facility] Address [address] [place] [address] Phone Care Team Providers Care Staff Psychologist Name Role Phone Rashad Benitez MD Primary Care Provider [phone] Encounters Date Type Department Care Team Description 06/14/2025 8:36 AM EDT - 06/14/2025 11:59 PM EDT Hospital Encounter [facility] [place] [address] [place] [address] Mariluz Catalan CNP Discharge Disposition: Home or Self Care 06/14/2025 Transcribe Orders [facility] [place] [address] [place] [address] Mariluz Catalan CNP Elevated LFTs (Primary Dx) from Last 3 Months Social History Tobacco Use Types Packs/Day Years Used Date Smoking Tobacco: Never Assessed Education Answer Date Recorded Are you interested in more education? Not on guy e 10/03/2023 Are you concerned about learning? Not on file 10/03/2023 No 10/03/2023 No 10/03/2023 Digital Access Answer Date Recorded No 10/03/2023 No 10/03/2023 Reliable internet access at home? Not on file 10/03/2023 Device with a working camera? Not on file Sex and Gender Information Value Date Recorded Sex Assigned at Not on file Legal Sex Male 3:58 PM EST Gender Identity Not on file Sexual Orientation Not on file Plan of Treatment Upcoming Encounters Date Type Department Care Team (Late st Contact Info) Description 09/29/2025 3:30 PM EST Office Visit [facility] [address] [place] [address] Unknown, Unknown, [place] [address] [email or web address] Health Maintenance Due Date Last Done Comments Adult Td,Tdap Booster 1983 LIPID PANEL 1983 DEPRESSION SCREENING 1995 SMOKING Hx and SMOKELESS TOB ACCO SCREENING 1996 HEPATITIS C SCREENING 2001 HIV ONE-TIME SCREENING (18-6 5 YEARS) 2001 INFLUENZA VACCINE (#1) 2025 COVID-19 VACCINE (2024-2 6 season) 2025 HEPATITIS A VACCINES Aged Out No long er eligible based on patient's age to complete this topic HIB VACCINES Aged Out No longer eligi ble based on patient's age to complete this topic MENINGOCOCCAL VACCINES (ACWY) Aged Out No longer eligible based on patient's age to complete this topic MENINGOCOCCAL VACCINES (B) Aged Out N o longer eligible based on patient's age to complete this topic PNEUMOCOCCAL VACCINES (0-49 years) Aged Out No longer eligible based on patient's age to complete this topic Medical Devices Not on file Procedures Procedure Name Priority Date/Time Associated Diagnosis Comments LFTS (HEPATIC PANEL) Routine 06/14/2025 9:05 AM EDT Elevated LFTs GGT (GAMMA GLUTAMYL TRANSFERASE) Routine 06/14/2025 9:05 AM EDT Elevated LFTs from Last 3 Months Results * (ABNORMAL) LFTs (hepatic panel) (06/14/2025 9:05 AM EDT) ALKALINE PHOSPHATASE 128(H) 39 - 117 U/L [facility] TOTAL BILIRUBIN 0.9 0.0 - 1.2 mg/dL [facility] DIRECT BILIRUBIN 0.1 0.0 - 0.2 mg/dL [facility] Bilirubin (Indirect) NOT CALCULATED 0 - 1.5 mg/dL [facility] AST 45(H) 0 - 37 U/L [facility] ALT 29 0 - 40 U/L [facility] TOTAL PROTEIN 7.9 6.5 - 8.0 g/dL [facility] ALBUMIN 4.4 3.9 - 4.8 g/dL [facility] GLOBULIN 3.5 1 - 4.8 g/dL [facility] A/G Ratio 1.26 1.00 - 4.80 RATIO [facility] Blood 06/14/2025 9:05 AM EDT 06/14/2025 9:19 AM EDT Mariluz Catalan [facility] LAB BLOOD BKR ORDERABLES F inal Result Performing Organization Address City/[facility]/ZIP Co de Phone Number [address] [address] * GGT (Gamma glutamyl transferase) (06/14/2025 9:05 AM EDT) GGT 28 11 - 51 U/L [facility] Blood 06/14/2025 9:05 AM EDT 06/14/2025 9:19 AM EDT Mariluz Catalan [facility] LAB BLOOD BKR ORDERABLES F inal Result Performing Organization Address City/[facility]/ZIP Co de Phone Number [address] [address] from Last [address] [place] [address] EPO PPO EPO PPO EPO PPO [place] [address] [place] [address] PPO EPO Care Teams Staff Psychologist Relationship Specialty Start Date End Date Rashad Benitez MD [address] [place] [id number] PCP - General 10/30/18 Additional Source Comments The information contained in this document represents components of the legal health record. It is not the complete legal health record.[facility]
--- OUTSIDE RECORDS SUMMARY | 2025-07-01 15:31 | XMS_ITS | Clinical Summary ---
Author Organization [facility] Address [address] [place] [address] Care Team Providers Care Natural Foods Clerk Name Role Phone Unavailable Primary Care Provider [...] 3-dose series) 2002 COVID-19 Vaccine ( - 2024-2 6 season) 2025 Influenza (#1) 2025 Zoster (Shingrix) [...] this topic Insurance WORKERS COMPENSATION * Guarantor: [employer] Account Type Relation to Patient Date of Phone Billing Address Occupational Health Jeanna ATTN: A/P DEPT [address] [place] [address] [address] [place] [address]
== END 2025-07-01 13:32 | disposition home or self-care (01) ==
LOC: HO.HUSH 12:42
PROVIDERS: PCP Internal Medicine; Visit Provider Urology
DX: N48.0 Leukoplakia of penis (principal)
CPT/HCPCS: 11104

== ENCOUNTER → 2025-07-01 12:41 | Outpatient (BNVA) | payer BC, SELFPAY | PROVIDERS: PCP Internal Medicine; Visit Provider Urology | DX: N48.0 Leukoplakia of penis (principal); Z87.448 Personal history of other diseases of urinary system; Z98.890 Other specified postprocedural states | CPT/HCPCS: 54100; 88304 ==

== ENCOUNTER 2025-07-16 13:51 | Outpatient (AMB) | payer BC, SELFPAY ==
--- NOTE | 2025-07-16 13:52 | MHC.OFFVIS ---
Intake Visit Reasons: 2w follow up Intake Note: Patient Is Present for Penile Biopsy Results Urology Med: Metronidazole, Testosterone Antibiotic Allergy: None Blood Thinner: None Restaurant Host/Hostess Required: No Allergies No Known Allergies Allergy (Verified 07/16/25 13:52) HPI Comments Details: Michael is a pleasant male. He is seen for the following urologic condition - urethral stricture - lichen sclerosus and atrophicus of penis gland Telemedicine Evaluation 15 min Consultation Doximity Tanisha Video Discussion of biopsy results Punch biopsy performed on ventral surface of penile tip Pathology findings consistent with lichen sclerosis Six-month follow-up for urethral stricture management Has been receiving high potency steroids through dermatology - [facility] D[facility] Previously recommended daily use of dilator and referral to [facility] Prior referral to Dr. Faustin at [facility] for graft - distal urethral reconstruction Was informed that reconstruction would be extensive Urethral stricture Prior injury aged 20 Follow catheter placed emergency room 11/14 DVIU performed for distal urethral stricture Had catheter for 7 days [facility] Medical History Lipoma of abdominal wall Torn meniscus ACL tear Chronic allergic rhinitis ELODIA (obstructive sleep apnea) Urethral stricture Asthma Social History Patient Tobacco Use Status: Current someday Tobacco user Tobacco use type: Cigarette Review of Systems Const All systems reviewed & are unremarkable except as noted in HPI and below Reports no additional complaints Resp Reports no additional complaints GI Reports no additional complaints Reports as per HPI Musc Reports no additional complaints Physical Exam Telemedicine evaluation Appropriate responses Regular breathing rate and rhythm HEENT Head: Yes normal to inspection Ears: hearing grossly normal bilaterally Eyes General: appearance normal, both eyes and all related structures Neck Neck: Yes normal visual inspection Chest Chest palpation & inspection: normal inspection of the chest Resp Effort & Inspection: normal respiratory effort and able to speak in complete sentences Telehealth Telehealth Telehealth Platform: [email or web address] Location of provider rendering services: practice address Location of patient: address on file Patient Identification confirmed using: Name, : Yes Telehealth method: video Patient verbally consented to treatment: Yes Patient verbally consented to billing insurance company: Yes Patient informed of any privacy concerns related to visit: Yes Minutes spent on Phone/Video with Pt.: 15 Assessment & Plan Assessment & Plan (1) 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 While every effort has been made to ensure accuracy marketing team lead errors may have been included. Imaging studies, laboratory and physical exam results were discussed and reviewed in detail. No major barriers to patient understanding were identified. An opportunity to ask questions regarding the treatment plan was provided. All questions were answered. The patient expressed understanding and agreement with the above treatment plan. The patient is aware they should contact our office by phone for worsening of their current condition or the appearance of new urologic symptoms. Compliance is encouraged with any medications and followup testing that is ordered. It is a privilege to participate in the urologic care of your patient. If you have any questions or concerns regarding treatment for the above conditions, or other urologic issues, please do not hesitate to contact me. The office telephone contact is [phone]. 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
--- OUTSIDE RECORDS SUMMARY | 2025-07-16 14:24 | XMS_ITS | Clinical Summary ---
Author Organization [facility] Address [address] [place] [address] Phone Care Team Providers Care Wafer Polishing Lead Worker Name Role Phone Rashad Benitez MD Primary Care Provider [phone] Encounters Date Type Department Care Team Description 06/14/2025 8:36 AM EDT - 06/14/2025 11:59 PM EDT Hospital Encounter [facility] [place] [address] [place] [address] Mariluz Catalan CNP Discharge Disposition: Home or Self Care 06/14/2025 Transcribe Orders [facility] [place] [address] [place] [address] Mariluz Catalan CNP Elevated LFTs (Primary Dx) [...] Description 09/29/2025 3:30 PM EST Office Visit [facility] [address] [place] [address] Unknown, Unknown, [place] [address] [email or web address] Health Maintenance Due Date Last Done Comments [...] ALKALINE PHOSPHATASE 128(H) 39 - 117 U/L [facility] TOTAL BILIRUBIN 0.9 0.0 - 1.2 mg/dL [facility] DIRECT BILIRUBIN 0.1 0.0 - 0.2 mg/dL [facility] Bilirubin (Indirect) NOT CALCULATED 0 - 1.5 mg/dL [facility] AST 45(H) 0 - 37 U/L [facility] ALT 29 0 - 40 U/L [facility] TOTAL PROTEIN 7.9 6.5 - 8.0 g/dL [facility] ALBUMIN 4.4 3.9 - 4.8 g/dL [facility] GLOBULIN 3.5 1 - 4.8 g/dL [facility] A/G Ratio 1.26 1.00 - 4.80 RATIO [facility] Blood 06/14/2025 9:05 AM EDT 06/14/2025 9:19 AM EDT Mariluz Catalan [facility] LAB BLOOD BKR ORDERABLES F inal Result Performing Organization Address City/[facility]/ZIP Co de Phone Number [address] [address] * GGT (Gamma glutamyl transferase) (06/14/2025 9:05 AM EDT) GGT 28 11 - 51 U/L [facility] Blood 06/14/2025 9:05 AM EDT 06/14/2025 9:19 AM EDT Mariluz Catalan [facility] LAB BLOOD BKR ORDERABLES F inal Result Performing Organization Address City/[facility]/ZIP Co de Phone Number [address] [address] from Last [address] [place] [address] EPO PPO EPO PPO EPO PPO EPO [place] [address] [place] [address] PPO EPO Care Teams Wafer Polishing Lead Worker Relationship Specialty Start Date End Date Rashad Benitez MD [address] [place] [id number] PCP - General 10/30/18 Additional Source Comments The information contained in this document represents components of the legal health record. It is not the complete legal health record.[facility]
--- OUTSIDE RECORDS SUMMARY | 2025-07-16 14:24 | XMS_ITS | Clinical Summary ---
Author Organization [facility] Address [address] [place] [address] Care Team Providers Care Consumer Affairs Director Name Role Phone Unavailable Primary Care Provider [...] this topic Insurance WORKERS COMPENSATION * Guarantor: [employer] Account Type Relation to Patient Date of Phone Billing Address Occupational Health Jeanna ATTN: A/P DEPT [address] [place] [address] [address] [place] [address]
== END 2025-07-16 14:25 | disposition home or self-care (01) ==
LOC: HO.HUSH 13:51
PROVIDERS: PCP Internal Medicine; Visit Provider Urology
DX: N48.0 Leukoplakia of penis (principal)
CPT/HCPCS: 99213